=== PATIENT | female | born 1950 | race Hispanic/Latino ===

== ENCOUNTER 2017-09-12 13:37 | Emergency (ER) | payer MEDICARE ==
[~2017-09-12] VITALS: Ht 165.1 cm; Wt 80.7 kg
[2017-09-12] MEDS ORDERED: KETOROLAC TROMETHAMINE 30 MG/ML VIAL IM STA (14:16)
== END 2017-09-12 15:30 | disposition home or self-care (01) ==
LOC: ER 13:37
DX: S76.811A Strain of other specified muscles, fascia and tendons at thigh level, right thigh, initial encounter (principal); I10 Essential (primary) hypertension; E11.9 Type 2 diabetes mellitus without complications; E78.5 Hyperlipidemia, unspecified
CPT/HCPCS: 99281; J1885